=== PATIENT | female | born 1970 | race Caucasian/White ===

== ENCOUNTER 2016-09-06 21:03 | Emergency (ER) | payer OTHER ==
--- NOTE | 2016-09-23 16:41 | ER ---
ADMIT: 09/06/2016 RM/LOC: ER [facility] MR#: [id number] [id number] SRINIVASMICHAELA [place] [address] Emergency Room Report SEX: F AGE: 46 : 1970 DATE: 09/06/2016 A 46-year-old female, who was sitting on a 25-gallon bucket when it gave way, she twisted her foot and she fell to the ground, comes to the Emergency Department complaining of left foot pain. See T-sheet for history and physical. X-rays are negative for fractures. The patient diagnosed with sprain of the foot, given a hard shoe and a prescription for Ultram. Encouraged to follow up with the primary doctor if not better in 1 to 2 days. It is also instructed to ice and elevate tonight. Abhay Landis MD/ natalee JOB #: [id number] CC: Nils Garay MD, Attending Physician Nicky Mohan, Family Physician
== END 2016-09-06 21:55 | disposition home or self-care (01) ==
LOC: ER 21:03
DX: S93.601A Unspecified sprain of right foot, initial encounter (principal); F32.9 Major depressive disorder, single episode, unspecified; I10 Essential (primary) hypertension; Z88.1 Allergy status to other antibiotic agents; Z98.890 Other specified postprocedural states; Z79.899 Other long term (current) drug therapy; X50.1XXA Overexertion from prolonged static or awkward postures, initial encounter